=== PATIENT | female | born 1985 | race Caucasian/White ===

== ENCOUNTER 2020-05-05 02:08 | Outpatient (CLI) | payer OTHER, SELFPAY ==
[2020-05-05 10:02] LABS: HCT 42.1 % (36.0-46.0); Mean Corp. HGB Concentration 33.3 g/dL (32.0-36.0); Mean Corpuscular Volume 90.3 fL (80-95); Mean Platelet Volume 9.7 fL (8.0-11.0); Platelet Count 262 x1000/uL (130-400); RBC 4.66 m/cumm (4.00-5.20); RBC Distribution Width 12.4 % (11.7-14.6); White Blood Cell Count 7.59 k/cumm (4.4-10.8)
[2020-05-05 11:01] LABS: ALT 21 U/L (14-59); AST 17 U/L (15-37); Albumin 4.7 g/dL (3.4-5.0); Alkaline Phosphatase 49 U/L (46-116); Anion Gap 11.7 mmol/L (3-11); BUN 13 mg/dL (7-18); Bilirubin, Total 0.8 mg/dL (0.2-1.0); CO2 27.3 mmol/L (21.0-32.0); CREATININE 0.76 mg/dL (0.55-1.02); Calcium 9.1 mg/dL (8.5-10.1); Calculated LDL 125 mg/dL (<100); Chloride 103 mmol/L (98-107); Cholesterol 190 mg/dL (<200); Glucose 78 mg/dL (74-106); HDL Cholesterol 54 mg/dL (40-60); Potassium 3.9 mmol/L (3.5-5.1); Sodium 142 mmol/L (136-145); TSH (W/Ref FT4) 1.22 uIU/mL (0.36-3.74); Total Protein 7.6 g/dL (6.4-8.2); Triglyceride 58 mg/dL (<150)
[2020-05-05 11:23] LABS: Vitamin B12 533 pg/mL (193-986)
[2020-05-06 23:42] LABS: COVID-19 RT-PCR Result NEGATIVE (Negative)
== END 2020-05-05 02:28 ==
PROVIDERS: Nurse Practitioner Family; Psychiatry & Neurology Neurology; PCP Student in an Organized Health Care Education/Training Program; Visit Provider Student in an Organized Health Care Education/Training Program
DX: J45.990 Exercise induced bronchospasm (principal); Z13.1 Encounter for screening for diabetes mellitus; Z82.49 Family history of ischemic heart disease and other diseases of the circulatory system; Z83.3 Family history of diabetes mellitus; Z86.39 Personal history of other endocrine, nutritional and metabolic disease; R53.83 Other fatigue; Z13.220 Encounter for screening for lipoid disorders; R42 Dizziness and giddiness; G62.9 Polyneuropathy, unspecified; Z11.59 Encounter for screening for other viral diseases
CPT/HCPCS: 36415; 80053; 80061; 85027; U0003; 82607; 84443

== ENCOUNTER 2020-09-28 16:28 | Outpatient (REF) | payer OTHER, SELFPAY ==
--- NOTE | 2020-09-28 13:35 | PAPFT_PTH ---
PATIENT: Itzel Darby LOC: [facility] U#:[id number] AGE/SX: 35/F ROOM: RE09/28/[address]: Jordana Gonzalez DO : 1985 BED: DIS: 09/28/2020 SPEC #: [id number] RECD: 09/28/20 17:49 STATUS: THOMAS REQ #: [id number] JONATHAN: 09/28/20 13:[address]: Jordana Gonzalez DEPT: [facility] Cytology RECD BY: Rosa Morales ENTERED: 09/28/20 17:49 SP TYPE: PAPFT OTHR DR: Raissa Rodriguez DO Tissues: 1 - CX/ENDOCX FOR PAP SMEARS Procedures: PAP THIN PREP/UVM Screening HPV DNA PROBE Comments: [id number]
== END 2020-09-28 16:48 ==
LOC: LBN 16:28
PROVIDERS: PCP Student in an Organized Health Care Education/Training Program; Visit Provider Obstetrics & Gynecology
DX: Z12.4 Encounter for screening for malignant neoplasm of cervix (principal); R87.612 Low grade squamous intraepithelial lesion on cytologic smear of cervix (LGSIL); Z11.51 Encounter for screening for human papillomavirus (HPV); R87.810 Cervical high risk human papillomavirus (HPV) DNA test positive
CPT/HCPCS: 88142; 87624

== ENCOUNTER 2020-10-18 03:14 | Outpatient (CLI) | payer OTHER, SELFPAY ==
--- NOTE | 2020-10-18 06:30 | DI.US_ITS ---
EXAM: US PELVIS TRANSVAGINAL CLINICAL HISTORY: enlarged uterus, pain,iud surveillance,n85.2,z30.431 TECHNIQUE: Ultrasound of the pelvis was performed both transabdominal and transvaginal. COMPARISON: No exams were available for comparison FINDINGS: UTERUS: Measures 8.4 cm length x 4.3 cm AP x 5.1 cm wide. Uterus is retroverted. There are no uterine fibroids. Endometrial thickness measures 2-3 mm. There is no fluid in the endometrial canal. Echogenic IUD noted in the endometrial canal. CERVIX: There are no obvious nabothian cysts. RIGHT OVARY: Measures 3.7 x 1.6 x 1.5 cm There is a 2.2 x 1.6 x 1. 1 centimeter density which is probably hemorrhagic cyst. LEFT OVARY: Measures 0.3 x 1.4 x 1.7 cm No significant cysts nor masses evident in the left ovary. CUL-DE-SAC: No free fluid evident. IMPRESSION: 1. Nongravid retroverted uterus with IUD within the endometrial canal. Nonthickened endometrium. 2. 2.2 x 1.6 x 1.1 cm right ovarian finding which is probably hemorrhagic ovarian cyst. 3. No free fluid evident in the adnexal regions and cul-de-sac. DATA REPOSITORY:
== END 2020-10-18 03:34 ==
PROVIDERS: PCP Student in an Organized Health Care Education/Training Program; Visit Provider Obstetrics & Gynecology
DX: N85.4 Malposition of uterus (principal); Z97.5 Presence of (intrauterine) contraceptive device; N83.8 Other noninflammatory disorders of ovary, fallopian tube and broad ligament; Z30.431 Encounter for routine checking of intrauterine contraceptive device; N85.2 Hypertrophy of uterus
CPT/HCPCS: 76830; 76856

== ENCOUNTER 2020-10-23 16:28 | Outpatient (REF) | payer OTHER, SELFPAY ==
--- NOTE | 2020-10-23 15:20 | CER_PTH ---
PATIENT: Itzel Darby LOC: [facility] U#:[id number] AGE/SX: 35/F ROOM: RE10/23/[address]: Jordana Gonzalez DO : 1985 BED: DIS: 10/23/2020 SPEC #: [id number] RECD: 10/23/20 17:06 STATUS: THOMAS RE #: [id number] JONATHAN: 10/23/20 15:[address]: Jordana Gonzalez DEPT: Surgical Specimen RECD BY: Rosa Morales ENTERED: 10/23/20 17:07 SP TYPE: CER OTHR DR: Raissa Rodriguez DO Tissues: 1 - CERVICAL BIOPSY 2 - ENDOCERVICAL BX/CURRETTE Procedures: GROSS AND MICRO LEVEL 4 Comments: [id number]
== END 2020-10-23 16:48 ==
LOC: LBN 16:28
PROVIDERS: PCP Student in an Organized Health Care Education/Training Program; Visit Provider Obstetrics & Gynecology
DX: N72 Inflammatory disease of cervix uteri (principal); R87.612 Low grade squamous intraepithelial lesion on cytologic smear of cervix (LGSIL)
CPT/HCPCS: 88305

== ENCOUNTER 2022-04-01 13:11 | Outpatient (CLI) | payer OTHER, SELFPAY ==
[2022-04-01 12:49] LABS: HCG Quant, Pregnancy < 1 mIU/mL (1-3)
== END 2022-04-01 13:12 | disposition home or self-care (01) ==
LOC: LBO 13:13
PROVIDERS: PCP Student in an Organized Health Care Education/Training Program; Visit Provider Obstetrics & Gynecology
DX: Z3A.01 Less than 8 weeks gestation of pregnancy; O26.851 Spotting complicating pregnancy, first trimester
CPT/HCPCS: 36415; 84702

== ENCOUNTER 2022-08-26 15:35 | Outpatient (REF) | payer OTHER, SELFPAY ==
[2022-08-26 10:26] LABS: Source Nasal/Nares
[2022-08-26 10:58] LABS: COVID-19 PCR Negative (Negative)
== END 2022-08-26 15:36 | disposition home or self-care (01) ==
LOC: LBN 15:35
PROVIDERS: PCP Student in an Organized Health Care Education/Training Program; Visit Provider Nurse Practitioner Family
DX: Z20.822 Contact with and (suspected) exposure to COVID-19 (principal)
CPT/HCPCS: 87635

== ENCOUNTER 2022-09-11 09:45 | Outpatient (CLI) | payer OTHER, SELFPAY ==
--- NOTE | 2022-09-11 09:00 | DI.RAD_ITS ---
Exam(s) XR WRIST RT COMPL NAVICULAR EXAM: XR WRIST RT COMPL NAVICULAR CLINICAL HISTORY: persistent pain cammynes S63.511A SPRAIN RT WRIST SCAPHOLUNATE LIGAMENT. TECHNIQUE: 2D digital imaging was performed. COMPARISON: No exams were available for comparison FINDINGS: Four views: There is no evidence of fracture nor dislocation. Scaphoid and scapholunate distance appear unremark able. No significant ulnar variance. Bone density normal. No osseous lesions. IMPRESSION: No significant osseous findings. Given the history here if clinically indicated follow-up MRI can be performed for added sensitivity and specificity. DATA REPOSITORY: RADIATION DOSE DELIVERED:
== END 2022-09-11 10:05 ==
LOC: DI 09:46
PROVIDERS: PCP Student in an Organized Health Care Education/Training Program; Visit Provider Student in an Organized Health Care Education/Training Program
DX: M25.531 Pain in right wrist; S63.511D Sprain of carpal joint of right wrist, subsequent encounter
CPT/HCPCS: 73110

== ENCOUNTER 2022-10-22 16:31 | Outpatient (REF) | payer OTHER, SELFPAY ==
--- NOTE | 2022-10-22 15:00 | PAPFT_PTH ---
PATIENT: Itzel Darby LOC: [facility] U#:[id number] AGE/SX: 37/F ROOM: RE10/22/[address]: Jordana Gonzalez DO : 1985 BED: DIS: 10/22/2022 SPEC #: [id number] RECD: 10/22/22 17:25 STATUS: THOMAS REQ #: [id number] JONATHAN: 10/22/22 15:[address]: Jordana Gonzalez DEPT: [facility] Cytology RECD BY: Rosa Morales ENTERED: 10/22/22 17:25 SP TYPE: PAPFT OTHR DR: Raissa Rodriguez DO Tissues: 1 - CX/ENDOCX FOR PAP SMEARS Procedures: PAP THIN PREP/UVM Screening HPV DNA PROBE Comments: [id number] (CHLAMYDIA/GC)
[2022-10-23 14:30] LABS: Chlamydia Result Negative (Negative); GC Result Negative (Negative)
== END 2022-10-22 16:32 | disposition home or self-care (01) ==
LOC: LBN 16:31
PROVIDERS: PCP Student in an Organized Health Care Education/Training Program; Visit Provider Obstetrics & Gynecology
DX: Z12.4 Encounter for screening for malignant neoplasm of cervix (principal); Z11.3 Encounter for screening for infections with a predominantly sexual mode of transmission; R87.610 Atypical squamous cells of undetermined significance on cytologic smear of cervix (ASC-US); Z11.51 Encounter for screening for human papillomavirus (HPV)
CPT/HCPCS: 87491; 87591; 88142; 87624

== ENCOUNTER 2022-11-11 02:55 | Outpatient (CLI) | payer OTHER, SELFPAY ==
[2022-11-12 10:07] LABS: Hepatitis B Surface Ag Negative (Negative)
[2022-11-12 10:37] LABS: Hepatitis C Ab w Rflx HCV PCR Negative (Negative)
[2022-11-12 10:48] LABS: Varicella IgG Antibody Positive (See Note)
[2022-11-12 10:56] LABS: Rubella IgG Ab (UVM) Positive (See Note)
[2022-11-12 12:40] LABS: HIV-1/2 Ag & Ab Screen Reactive (Negative)
[2022-11-14 14:06] LABS: Syphilis IgG w/Reflex Nonreactive (Nonreactive)
[2022-11-20 12:42] LABS: HIV 1 Ab Diff Negative (Negative); HIV 2 Ab Diff Negative (Negative)
== END 2022-11-11 02:56 | disposition home or self-care (01) ==
LOC: LBO 02:55
PROVIDERS: PCP Student in an Organized Health Care Education/Training Program; Visit Provider Obstetrics & Gynecology
DX: Z31.69 Encounter for other general counseling and advice on procreation (principal)
CPT/HCPCS: 36415; 86701; 86702; 86787; 86803; 86850; 86900; 86901; 87340; 87389; 86762; 86780

== ENCOUNTER 2023-06-04 15:27 | Outpatient (RCR) | payer OTHER, SELFPAY ==
--- NOTE | 2023-06-04 15:20 | SKI_PTH ---
PATIENT: Itzel Darby LOC: [facility] U#:[id number] AGE/SX: 38/F ROOM: RE06/04/[address]: Padilla Davis MD : 1985 BED: DIS: 06/12/2023 SPEC #: [id number] RECD: 06/04/23 17:03 STATUS: THOMAS RE #: [id number] JONATHAN: 06/04/23 15:[address]: Padilla Davis DEPT: Surgical Specimen RECD BY: Rosa Morales ENTERED: 06/04/23 17:03 SP TYPE: ALONSO RENAE DR: Raissa Rodriguez DO Tissues: 1 - SKIN BIOPSY(SHAVE/PUNCH) Procedures: IMMUNOPEROXIDASE STAIN SKIN LEVEL 4 Comments: [id number]
== END 2023-06-12 23:59 | disposition home or self-care (01) ==
LOC: LBN 15:27
PROVIDERS: PCP Student in an Organized Health Care Education/Training Program; Visit Provider Surgery
DX: D03.9 Melanoma in situ, unspecified (principal)
CPT/HCPCS: 88305; 88361

== ENCOUNTER 2023-06-13 14:54 | Outpatient (REF) | payer OTHER, SELFPAY ==
--- NOTE | 2023-06-13 13:47 | SKI_PTH ---
PATIENT: Itzel Darby LOC: [facility] U#:[id number] AGE/SX: 38/F ROOM: RE06/13/[address]: Padilla Davis MD : 1985 BED: DIS: 06/13/2023 SPEC #: [id number] RECD: 06/13/23 17:39 STATUS: THOMAS RE #: [id number] JONATHAN: 06/13/23 13:[address]: Padilla Davis DEPT: Surgical Specimen RECD BY: Rosa Morales ENTERED: 06/13/23 17:39 SP TYPE: ALONSO RENAE DR: Raissa Rodriguez DO Tissues: 1 - SKIN BIOPSY(SHAVE/PUNCH) 2 - SKIN BIOPSY(SHAVE/PUNCH) Procedures: IMMUNOPEROXIDASE STAIN SKIN LEVEL 4 Comments: [id number]
== END 2023-06-13 14:55 | disposition home or self-care (01) ==
LOC: LBN 14:54
PROVIDERS: PCP Student in an Organized Health Care Education/Training Program; Visit Provider Surgery
DX: L82.1 Other seborrheic keratosis (principal); L90.5 Scar conditions and fibrosis of skin; D03.71 Melanoma in situ of right lower limb, including hip
CPT/HCPCS: 88305; 88361

== ENCOUNTER → 2023-07-24 00:53 | Outpatient (CLI) | payer OTHER, SELFPAY ==
--- NOTE | 2023-07-24 15:45 | DI.MAMMO_ITS ---
Exam(s) US BREAST RT LIMITED MG MAMMO SCREENING 60 MIN DUR EXAM: MG MAMMO SCREENING 60 MIN DUR and U/S breast RT limited CLINICAL HISTORY: breast cancer screening and breast implant status, Z12.31, Z98.82. TECHNIQUE: Craniocaudal and mediolateral oblique Full Field Digital Mammography views with Computer Aided Diagnosis followed by Tomosynthesis and right breast ultrasound. COMPARISON: This is a baseline examination. FINDINGS: Mammography/Tomosynthesis: The patient has bilateral breast implants. Masses/Architectural Distortion: None seen. Microcalcifictions: No suspicious pleomorphic-type are seen. Skin Thickening/Nipple Retraction: None. Limited right breast US: Echotexture: Normal appearance of the glandular tissue. Breast implant: There is focal thickening seen of the fibrous capsule of the right implant at the 10 o'clock position. This corresponds to the palpable abnormality. Shadowing: No suspicious foci. Cyst: None. Solid lesions: None seen. Ductal dilation: None. IMPRESSION: 1. No evidence of malignancy is noted. 2. Unless there is more urgent need, follow-up screening mammography is recommended, as per [place] [employer] guidelines. 3. The findings were discussed with the patient on the date of the examination. BI-RADS Category 1 - Negative Breast Density - Category B - Scattered areas of fibroglandular density Breast density Category C or D implies that the patient has dense breast tissue. Dense breast tissue can make it harder to find cancer on a mammogram. Dense breast tissue is also associated with an incr eased risk of breast cancer. This information about the result of the mammogram report was provided to the patient to raise their awareness. Use this report when you speak with the patient about their risks for breast cancer, which includes their family history. At that time, you may recommend additional screening tests (Ultrasoun d or MRI) as these tests may add significant information. A negative radiographic report should not delay biopsy if a dominant or clinically suspicious mass is present. Up to ten percent of cancers are not identified on mammography. A negative report may reinforce clinical impression. Adenosis and dense breasts may obscure an underlying neoplasm. False positive reports average 6 to 10%. Patient will receive a letter notifying them of these results.
== END ==
PROVIDERS: PCP Student in an Organized Health Care Education/Training Program; Visit Provider Surgery
DX: Z12.31 Encounter for screening mammogram for malignant neoplasm of breast (principal); Z98.82 Breast implant status; N63.11 Unspecified lump in the right breast, upper outer quadrant
CPT/HCPCS: 76642; 77063; 77067

== ENCOUNTER 2023-11-06 11:45 | Outpatient (REF) | payer OTHER, SELFPAY ==
--- NOTE | 2023-11-06 11:30 | PAPFT_PTH ---
PATIENT: Itzel Darby LOC: [facility] U#:[id number] AGE/SX: 38/F ROOM: RE11/06/[address]: Jordana Gonzalez DO : 1985 BED: DIS: 11/06/2023 SPEC #: [id number] RECD: 11/06/23 17:41 STATUS: THOMAS REQ #: [id number] JONATHAN: 11/06/23 11:[address]: Jordana Gonzalez DEPT: [facility] Cytology RECD BY: Rosa Morales ENTERED: 11/06/23 17:41 SP TYPE: PAPFT OTHR DR: Raissa Rodriguez DO Tissues: 1 - CX/ENDOCX FOR PAP SMEARS Procedures: PAP THIN PREP/UVM Screening HPV DNA PROBE Comments: [id number]
== END 2023-11-06 11:46 | disposition home or self-care (01) ==
LOC: LBN 11:45
PROVIDERS: PCP Student in an Organized Health Care Education/Training Program; Visit Provider Obstetrics & Gynecology
DX: Z12.4 Encounter for screening for malignant neoplasm of cervix (principal)
CPT/HCPCS: 88142; 87624

== ENCOUNTER 2024-03-04 13:41 | Outpatient (CLI) | payer OTHER, SELFPAY ==
[2024-03-04 15:54] LABS: Abs Immature Grans 0.01 10^3/uL (0.0-0.06); Absolute Basophil Count 0.04 10^3/uL (0.0-0.2); Absolute Eosinophil Count 0.05 10^3/uL (0.0-0.7); Absolute Lymphocyte Count 1.47 10^3/uL (1.2-3.4); Absolute Monocyte Count 0.35 10^3/uL (0.1-0.8); Absolute Neutrophil Count 4.07 10^3/uL (1.2-6.7); Basophils % 0.7 %; Eosinophils % 0.8 %; HCT 41.1 % (36.0-46.0); HGB 14.1 g/dL (11.2-15.7); Immature Grans % 0.2 %; Lymphocytes % 24.5 %; MCH 30.9 pg (27.0-33.0); MCHC 34.3 % (32.0-36.0); MCV 90 fL (80-95); MPV 9.8 fL (8.0-11.0); Monocytes % 5.8 %; Platelet Count 248 10^3/uL (130-400); RBC 4.56 10^6/uL (3.93-5.22); RDW 12.1 % (11.7-14.6); RDW-SD 39.9 fL; WBC 5.99 10^3/uL (4.4-10.8)
[2024-03-04 16:05] LABS: Hemoglobin A1C 5.2 % (<5.7)
[2024-03-04 17:00] LABS: Folate 17.7 ng/mL (8.6-20.0)
[2024-03-04 17:08] LABS: Vitamin D 25 Total 24.7 ng/mL (30-100)
[2024-03-04 17:10] LABS: ALT 21 U/L (14-59); AST 13 U/L (15-37); Albumin 4.3 g/dL (3.4-5.0); Alkaline Phosphatase 54 U/L (46-116); Anion Gap 5.3 mmol/L (3-11); BUN 15 mg/dL (7-18); Bilirubin, Total 0.6 mg/dL (0.2-1.0); CO2 28.7 mmol/L (21.0-32.0); CREATININE 0.9 mg/dL (0.55-1.02); Calcium 9.2 mg/dL (8.5-10.1); Chloride 105 mmol/L (98-107); Glucose 88 mg/dL (74-106); Magnesium 1.9 mg/dL (1.8-2.4); Potassium 3.5 mmol/L (3.5-5.1); Sodium 139 mmol/L (136-145); Total Protein 7.4 g/dL (6.4-8.2); Vitamin B12 739 pg/mL (193-986)
[2024-03-04 17:23] LABS: C-Reactive Protein < 0.50 mg/dL (<or=0.5)
[2024-03-05 19:59] LABS: Apolipoprotein A1 151 mg/dL (>=140)
[2024-03-09 17:44] LABS: Apolipoprotein B, Serum 87 mg/dL (48-124); Beta VLDL Cholesterol Not Detected mg/dL (<15); Beta VLDL Triglycerides Not Detected mg/dL (<15); Cholesterol, Total, CDC 192 mg/dL; Chylomicron Cholesterol Not Detected; Chylomicron Triglycerides Not Detected; HDL Cholesterol, CDC 51 mg/dL (>=50); Interpretation Normal; LDL Cholesterol 112 mg/dL; LDL Triglycerides 27 mg/dL (<=50); Lp(a) Cholesterol <5 mg/dL (<5); LpX Not detected; Triglycerides, CDC 80 mg/dL; VLDL Cholesterol 29 mg/dL (<30); VLDL Triglycerides 37 mg/dL (<120)
== END 2024-03-04 13:42 | disposition home or self-care (01) ==
LOC: LBO 13:42
PROVIDERS: PCP Student in an Organized Health Care Education/Training Program; Visit Provider Student in an Organized Health Care Education/Training Program
DX: Z91.89 Other specified personal risk factors, not elsewhere classified (principal); I10 Essential (primary) hypertension; E78.00 Pure hypercholesterolemia, unspecified; Z82.49 Family history of ischemic heart disease and other diseases of the circulatory system; Z86.2 Personal history of diseases of the blood and blood-forming organs and certain disorders involving the immune mechanism; R51.9 Headache, unspecified; R53.83 Other fatigue; R73.09 Other abnormal glucose
CPT/HCPCS: 36415; 80053; 80061; 82306; 82172; 82607; 82664; 82746; 83036; 83735; 85025; 86140

== ENCOUNTER 2024-08-31 06:15 | Day surgery (SDC) | payer OTHER, SELFPAY ==
--- NOTE | 2024-08-30 09:30 | SCONE_ITS ---
Date of service: 08/30/24 Time of Service: 09:30 Assessment and Plan Assessment and plan (1) Dysphagia: Status: Acute Assessment and plan: 39-year-old woman who has intermittent, paroxysmal dysphagia to solids only for years as well as on/off GERD. The differential diagnosis certainly includes motility disorders as well as the possibility of eosinophilic esophagitis. Benign esophageal webs are also within the differential diagnosis. Endoscopy is indicated. We discussed that the most significant risk is the distinct possibility of non- diagnostic results. Namely, that we do not find any answers for her dysphagia despite investigating. She understands this clearly and wishes to proceed. Separately, due for her for screening colonoscopy considering the family history. Overall plan: EGD with biopsies throughout the esophagus + screening colonoscopy History of Present Illness Narrative: The patient is a healthy 39-year-old woman who has a family history of adenomatous colorectal polyps in her sister. She is not having any bowel habit issues or changes. She is due for her for screening because of the family history. Separately, she has a long?standing history of dysphagia to solids. This is somewhat intermittent and has been going on for decades. It is unclear what exacerbates it or makes it happen and it seems to be sporadic and paroxysmal. She does have occasional acid reflux on and off. She does not take antacid medications for this. She does not know what spontaneously creates heartburn/GERD she does not have it every day but has had episodes of GERD on and off for years now. Medical history significant for hypertension and melanoma. Surgical history: PFSH All Active Problems (Updated 08/30/24 @ 12:37 by Dong Huitron MD) Dysphagia (Acute) GERD (gastroesophageal reflux disease) (Chronic) Presence of saline breast implant (Acute) Screening for breast cancer (Acute) Hair loss (Acute) Mild --> now noticeable .. [ ] Minox top vs Finesteride vs Spirono? Nevus sebaceous (Acute) Multiple melanocytic nevi (Acute) Onychomycosis (Acute) Rosacea (Acute) Low serum HDL (Acute) Elevated LDL cholesterol level (Acute) HTN, goal below 130/80 (Acute) Situational hypertension (Acute) Encounter for IUD insertion (Acute) Altitude sickness preventative measures (Acute) Prevention, moderate- to high-risk situations: Note: Use in addition to gradual ascent; start the day before (preferred) or on the day of ascent (Ref). Oral (immediate release): 125 mg twice daily; may be discontinued after staying at the same elevation for 2 to 4 days or if descent is initiated (Ref). Treatment: Acute mountain sickness: Oral (immediate release): 250 mg twice daily (Ref). Continue until descent or 24 hours after resolution of symptoms. Note: Some experts suggest 125 mg twice daily may be sufficient (Ref). General counseling and advice for contraceptive management (Acute) Breast cancer screening by mammogram (Acute) Melanoma in situ (Acute) Acne vulgaris (Acute 07/28/17) Exercise-induced asthma (Acute) Tonsillar calculus (Acute) Environmental allergies (Acute) Loratidine, 3/4 year. Nasonex. Fatigue (Acute) Daily exercise; Hx anemia during . [ ] TSH Ocular migraine (Acute) Migraine headache without aura (Acute) Right hand pain (Acute) Sprain of right scapholunate ligament (Acute) Low grade squamous intraepithelial lesion (LGSIL) on cervical Pap smear (Acute) Nail dystrophy (Acute) Pain, foot (Acute) False-positive serological test result (Chronic) HIV, PCR consistently negative Post covid-19 condition, unspecified (Acute) Medical History Skin lesion of foot Depression Wedge compression fracture of first lumbar vertebra, initial encounter for closed fracture (04/20/18) Encounter for screening for other viral diseases Hx INDETERMINATE HIV, PCR (-). d/w albin vickers numerous times. Surgical History H/O breast augmentation (~2007) section (12/07/11) Family History Mother Multiple myeloma Depression Hypothyroid Father Diabetes Heart disease Hypertension Stroke Brother Hypertension Hyperlipidemia Social History Smoking/Tobacco Use Status: Never Smoking risk assessment performed?: Yes Alcohol Intake: current Alcohol Intake frequency: a few times a week Alcohol type: hard liquor Drug use: Never Substance use type: does not use Adopted: No Caregiver/Support person: No Foster care: No Household members: significant other and children Housing: house Number of Children: 2 Communication Needs: Corrective Lenses Do you need help understanding health information?: Never 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 Neuro: Alert and oriented x3 Psych: Good mood and affect. Good insight and understanding into condition. Chest: Non-labored breathing, no wheezing, no visible shortness of breath. Heart: Regular
--- NOTE | 2024-08-30 17:49 | W.ANESPRE ---
General Info Date of Service Date Performed: 08/31/24 Height: 5 ft 4.5 in Weight: 56.019 kg Body Mass Index (BMI): 20.8 Surgical Procedure: Operation Date: 08/31/24 07:35 Proposed Procedure Side Surgeon p Colonoscopy/Gastroscopy Dong Huitron MD Meds Allergies and Home Medications Allergies Allergy/AdvReac Type Severity Reaction Status Date / Time No Known Allergies Allergy Verified 08/31/24 06:56 environmental Allergy Severe rhinitis Uncoded 08/31/24 06:56 Home Medication ?Medication ?Instructions ?Recorded mometasone 50 mcg/actuation nasal 2 spray intranasal DAILY 02/07/21 spray (Nasonex) magnesium 200 mg tablet 400 mg PO DAILY 12/18/23 blood-glucose meter,continuous #1 ea 01/05/24 (Dexcom G7 Carbonizer Tester) blood-glucose sensor (Dexcom G7 #1 ea 01/05/24 Sensor device) azelaic acid 15 % topical gel 1 applic topical BID 01/07/24 tretinoin 0.05 % topical cream 1 applic topical QHS 01/07/24 albuterol sulfate 90 mcg/actuation 2 puff inhalation QID PRN 06/18/24 aerosol inhaler shortness of breath or wheezing #1 unit losartan 25 mg tablet 25 mg PO BID #180 tabs 06/18/24 Current Visit Medications: Current Medications Generic Name Dose Route Start Last Admin Trade Name Freq PRN Reason Stop Dose Admin Ringer's Solution 1,000 mls @ 80 mls/hr 08/31/24 06:00 IV 08/31/24 23:59 INFUSION RAYRAY IV Miscellaneous Supplies 1 each 08/31/24 06:00 Iv Access IV 08/31/24 23:59 DIRECTED RAYRAY Sodium Chloride 0 ml 08/31/24 06:00 Normal Saline Flush 10 Ml Syr IV 08/31/24 23:59 PRN PRN Sodium Chloride 0 ml 08/31/24 06:00 Normal Saline 10 Ml Vial IJ 08/31/24 23:59 DIRECTED PRN Sterile Water 0 ml 08/31/24 06:00 Water,Injection,Sterile 10 Ml Vial IJ 08/31/24 23:59 DIRECTED PRN PFSH Active Problems Active Problems: Problem Status Onset Code Dysphagia Acute R13.10 GERD (gastroesophageal reflux disease) Chronic K21.9 Presence of saline breast implant Acute Z98.82 Screening for breast cancer Acute Z12.39 Hair loss Acute L65.9 Nevus sebaceous Acute D22.9 Multiple melanocytic nevi Acute D22.9 Onychomycosis Acute B35.1 Rosacea Acute L71.9 Low serum HDL Acute R74.8 Elevated LDL cholesterol level Acute E78.00 HTN, goal below 130/80 Acute I10 Situational hypertension Acute R03.0 Encounter for IUD insertion Acute Z30.430 Altitude sickness preventative measures Acute Z29.89 General counseling and advice for contraceptive management Acute Z30.09 Breast cancer screening by mammogram Acute Z12.31 Melanoma in situ Acute D03.9 Acne vulgaris Acute 07/28/17 L70.0 Exercise-induced asthma Acute J45.990 Tonsillar calculus Acute J35.8 Environmental allergies Acute Z91.09 Fatigue Acute R53.83 Ocular migraine Acute G43.109 Migraine headache without aura Acute G43.009 Right hand pain Acute M79.641 Sprain of right scapholunate ligament Acute S63.511A Low grade squamous intraepithelial lesion (LGSIL) on cervical Pap smear Acute R87.612 Nail dystrophy Acute L60.3 Pain, foot Acute M79.673 False-positive serological test result Chronic R76.8 Post covid-19 condition, unspecified Acute U09.9 Medical History Medical History Skin lesion of foot Depression Wedge compression fracture of first lumbar vertebra, initial encounter for closed fracture (04/20/18) Encounter for screening for other viral diseases Hx INDETERMINATE HIV, PCR (-). d/w albin vickers numerous times. Surgical History Surgical History H/O breast augmentation (~2007) section (12/07/11) Tobacco Smoking/Tobacco Use Status: Never Alcohol Alcohol Intake: current Alcohol intake frequency: a few times a week Alcohol type: hard liquor Substance Use Substance use: Never Substance use type: does not use Vital Signs and Lab Results Vital Signs Most Recent Vital Signs in EMR: Temp Pulse Resp BP Pulse Ox 36.4 C L 83 16 120/96 H 100 08/31/24 06:34 08/31/24 06:34 08/31/24 06:34 08/31/24 06:34 08/31/24 06:34 Lab Results Blood Type / Crossmatch: No Data to Display Complete Blood Count: No Data to Display Complete Metabolic Panel: No Data to Display Liver Function Panel: No Data to Display Coagulation Panel: No Data to Display Cardiac Panel: No Data to Display Arterial Blood Gas: No Data to Display Venous Blood Gas: No Data to Display Pancreas Panel: No Data to Display Thyroid Panel: No Data to Display Infectious Disease: No Data to Display Blood Cultures: No Data to Display Toxicology Panel: No Data to Display Panel: No Data to Display Anesthesia Assessment and Plan Anesthesia History Personal History: No History of General Anesthesia Family History: No Family History of Anesthesia Complications Exercise Tolerance Exercise Tolerance: Metabolic Equivalents>4 Cardiac & Pulmonary Exam Cardiac Exam: Normal S1/S2 Heart Sounds Pulmonary Exam: Clear Bilateral Breath Sounds Implantable Cardiac Device Does patient have a Pacemaker or an ICD?: No Airway Exam Known Difficult Airway: No Mallampati Class: 2 Mouth Opening: Normal (> 3cm) Thyromental Distance: Greater than 3 cm Neck Range of Motion: Full ROM Neck Circumference: Normal Teeth Condition: Normal Dentition ASA Classification ASA Score: ASA 2 Emergency Case?: No NPO Status NPO Status: NPO Clears >2 hours, Solids >8 hours Status Status: Negative HCG Anesthesia Plan Resuscitation Status: Full Code Anesthesia Technique: General Anesthesia Airway Planned: Natural Airway Monitors Used: Standard Monitors Preoperative Comments:: 39 yo female for EGD/colo. Sig PMHx : HTN (losartan), RAD (albuterol), GERD, migraine, lumbar fracture. never smoker, occ EtOH.
[2024-08-31 06:34] VITALS: BP 120/96; PULSE 83; RESP 16; TEMP 36.4; O2SAT 100
[2024-08-31] MEDS: Normal Saline Flush 10 ML SYR IV (06:40)
[2024-08-31 06:54] VITALS: BMI 20.8
--- NOTE | 2024-08-31 07:45 | STOM_PTH ---
PATIENT: Itzel Darby LOC: [facility] U#:[id number] AGE/SX: 39/F ROOM: RE08/31/[address]: Dong Huitron : 1985 BED: DIS: 08/31/2024 SPEC #: [id number] RECD: 08/31/24 12:25 STATUS: THOMAS RE #: [id number] JONATHAN: 08/31/24 07:[address]: Dong Huitron DEPT: Surgical Specimen RECD BY: Rosa Morales ENTERED: 08/31/24 12:33 SP TYPE: STOMACH OTHR DR: Raissa Rodriguez DO Tissues: 1 - STOMACH BIOPSY 2 - STOMACH BIOPSY 3 - ESOPHAGUS BIOPSY 4 - ESOPHAGUS BIOPSY 5 - ESOPHAGUS BIOPSY 6 - BIOPSY BOWEL Procedures: GROSS AND MICRO LEVEL 4 Comments: [id number]
[2024-08-31 08:20] VITALS: BP 109/77; PULSE 87; RESP 16; TEMP 36.3; O2SAT 97
--- NOTE | 2024-08-31 08:32 | W.ANESPOSTOP ---
Postoperative Evaluation Date, Time and Location Date Performed: 08/31/24 Time Performed: 08:32 Patient Location: Day Surgery Unit Vital Signs Most Recent Imported Vital Signs: Most Recent Vital Signs Temp Pulse Resp BP Pulse Ox 36.4 C L 83 16 120/96 H 100 08/31/24 06:34 08/31/24 06:34 08/31/24 06:34 08/31/24 06:34 08/31/24 06:34 Pain Score Most Recent Pain Score: Most Recent Pain Score Pain Level 0 08/31/24 06:34 Assessment Mental Status: Awake (Alert & Oriented to Patient Baseline) Airway and Respiratory Function: Patent airway with normal (patient baseline) respiratory exam Cardiovascular Function: Hemodynamically Stable Hydration Status: Adequately Hydrated Nausea & Vomiting: No Nausea or Vomiting Pain: Pt. Denies Any Pain Peripheral Nerve Block: Patient did not receive a nerve block
--- NOTE | 2024-08-31 08:55 | ENDO_ITS ---
Date of service: 08/31/24 Time of Service: 16:46 Endoscopy Report PROCEDURE DESCRIPTION: PROCEDURES PERFORMED: 1. EGD with biopsies PREOPERATIVE DIAGNOSIS: Dysphagia POSTOPERATIVE DIAGNOSIS: Normal foregut SURGEON: Ray Huitron MD INDICATION FOR PROCEDURE: Healthy 39-year-old woman has been experiencing on and off dysphagia for decades. Only to solids. Never to liquids. Not all the time. Occasionally has acid reflux as well but not daily or regularly. Does not take antacid medication. FINDINGS: D2/D3 = normal D1/bulb = normal - no ulcers or inflammation Pylorus = normal Antrum = normal appearance, no ulcers, cold forceps biopsies were taken to rule out H. pylori routinely Body = normal appearance, biopsies taken with cold forceps technique routinely Fundus = normal, no polyps Cardia = normal Hiatus = no hiatal hernia - but Hill grade 2 defect occasionally. Distal esophagus = no inflammation, no esophagitis, no Morris's, no stricture, no webs. Biopsies were taken routinely here to rule out eosinophilic esophagitis. Mid esophagus = normal, biopsies taken to rule out eosinophilic esophagitis. Proximal esophagus/hypopharynx/vocal cords = normal, biopsies taken at cervical esophagus to rule out eosinophilic esophagitis. SURVEILLANCE-INTERVAL/FOLLOW-UP: Pending pathology proving no eosinophilic esophagitis. If normal path results, then no follow-up is necessary but manometry could be considered for next steps. There could be a role for an endoscopic TIF procedure. Specimens: Yes EBL: Minimal COMPLICATIONS: None Procedure in detail: The patient gave written consent and was in agreement with the indications, the potential risks as well as the benefits of the procedure. The patient was taken to the endoscopy suite and laid on their left side. Anesthesia was given which was tolerated well. We performed a timeout and we ar e in agreement I started the procedure. A well-lubricated endoscope was gently and carefully advanced down the esophagus, into the stomach the scope was and through the pylorus into the duodenum. The scope was then slowly withdrawn with the above-noted findings/interventions. The patient tolerated the procedure well and was then turned for colonoscopy (see separate procedure note).
--- NOTE | 2024-08-31 08:55 | PDOC.DSDIS_ITS ---
Date of service: 08/31/24 Time of Service: 08:55 Discharge Plan Disposition Patient Disposition: Home Condition: Good Discharge Details Attending Provider: Dong Huitron Primary Care Provider: Raissa Rodriguez Home Meds and New Rx's Prescriptions: No Action magnesium 200 mg tablet 400 mg PO DAILY albuterol sulfate 90 mcg/actuation HFA aerosol inhaler 2 puff IH QID PRN (Reason: shortness of breath or wheezing) Qty: 1 2RF Rx Instructions: Dispense brand best covered under insurance losartan 25 mg tablet 25 mg PO BID Qty: 180 3RF Rx Instructions: Continue (1) tab; may increase to 50mg daily vs 25mg BID based on BP mometasone [Nasonex] 50 mcg/actuation spray,non-aerosol 2 spray intranasal DAILY Rx Instructions: administer into each nostril (DME) Dexcom G7 Sensor Device See Rx Instructions .Route Qty: 1 0RF Rx Instructions: As directed (DME) Dexcom G7 Administrative Services Manager Misc See Rx Instructions .Route Qty: 1 0RF Rx Instructions: As directed azelaic acid 15 % gel 1 applic topical BID tretinoin 0.05 % cream 1 applic topical QHS Rx Instructions: Start 2-3 times per week and slowly increase to nightly use. Can also mix with a bland moisturizer to help with irritation. Discharge Instructions Activity:: Activity as Tolerated Diet:: As Tolerated DS: Diagnosis Discharge Diagnosis (1) Dysphagia: Status: Acute Asessment and Plan: No significant findings or concerns on endoscopy or colonoscopy. Biopsies were taken routinely to rule out such entities such as eosinophilic esophagitis which could explain the dysphagia. If those biopsies are normal, then your dysphagia symptoms are probably related to a mild motility disorder which would be diagnosed with manometry if you wanted to pursue more answers.
--- NOTE | 2024-08-31 08:55 | W.COLOREPORT ---
Date of service: 08/31/24 Time of Service: 16:52 Colonoscopy Report Procedure Description: Procedures performed: 1. Colonoscopy with cold forceps biopsies Preoperative diagnosis: Screening colonoscopy Postoperative diagnosis: Normal terminal ileum, normal colon, normal rectum Surgeon: Ray Huitron MD Indication for procedure: The patient is a 39-year-old woman who is healthy and has no symptoms of concern. Her sister has had adenomatous colon polyps removed. Findings: Normal terminal ileum. Routine biopsies taken of the TI though it appeared completely normal. The colon was completely normal. No diverticulosis. No polyps. No inflammatory processes. No unusual redundancy or tight turns. The rectum was normal. No inflammation. No obvious hemorrhoid disease. Surveillance interval/follow-up: 5-10 years. Some guidelines recommend a 5-year surveillance interval for patients with first-degree relatives who have adenomatous colon polyps. Others have recommended 10-year surveillance intervals after earlier screening. In this case the relative is the patient's half?sister. A half-sibling is technically not a first-degree relative and so it is probably safe to do a 10-year interval now that the screening is clear. Specimens: yes Estimated blood loss: Minimal Complications: None Quality of prep: Excellent Procedure in detail: The patient gave written consent and was in agreement with the indications, the potential risks as well as the benefits of the procedure. She was turned from upper endoscopy (see separate procedure note) and I kept her in the same position and started the colonoscopy portion of the procedure. Digital rectal and visual examination was performed and grossly within normal limits. A well-lubricated flexible colonoscope was then introduced and passed without any notable difficulty all the way to the cecum identified by the ileocecal valve and the appendiceal orifice. The terminal ileum was deeply intubated and looked normal visually. The scope was then slowly withdrawn with the above-noted findings. The patient tolerated the procedure well and was taken to the PACU in hemodynamically stable condition.
[2024-08-31 08:57] VITALS: BP 117/90; PULSE 79; RESP 16; TEMP 36.5; O2SAT 100
== END 2024-08-31 09:18 | disposition home or self-care (01) ==
PROVIDERS: PCP Student in an Organized Health Care Education/Training Program; Visit Provider Student in an Organized Health Care Education/Training Program
PROC: (CPT 45380; principal; 2024-08-31 07:30)
DX: R13.10 Dysphagia, unspecified (principal); Z12.11 Encounter for screening for malignant neoplasm of colon; I10 Essential (primary) hypertension; K20.80 Other esophagitis without bleeding
CPT/HCPCS: 45380; 43239; 00123; 81025; 88305; J2405; J2704

== ENCOUNTER 2024-09-23 02:51 | Outpatient (CLI) | payer OTHER, SELFPAY ==
--- NOTE | 2024-09-23 15:00 | DI.MAMMO_ITS ---
Exam(s) MG MAMMO SCREENING 60 MIN DUR EXAM: MG MAMMO SCREENING 60 MIN DUR CLINICAL HISTORY: breast cancer screening z98.82 implants. TECHNIQUE: Bilateral full field digital CC and MLO mammographic images were obtained with 3D tomosyn thesis and utilizing computer aided detection (CAD). COMPARISON: Prior baseline mammogram July 2023 was reviewed. Prior right breast ultrasound 07/24/2023 was also reviewed. FINDINGS: Again noted are bilateral retropectoral saline breast implants There are no CAD designations. There are no new spiculated masses nor malignant appearing microcalcification groups. There is no significant architectural distortion nor skin thickening-retraction. IMPRESSION: No radiographic evidence of malignancy. BI-RADS Category 1 - Negative Breast Density - Category B - Scattered areas of fibroglandular density Breast density Category C or D implies that the patient has dense breast tissue. Dense breast tissue can make it harder to find cancer on a mammogram. Dense breast tissue is also associated with an incr eased risk of breast cancer. This information about the result of the mammogram report was provided to the patient to raise their awareness. Use this report when you speak with the patient about their risks for breast cancer, which includes their family history. At that time, you may recommend additional screening tests (Ultrasoun d or MRI) as these tests may add significant information. A negative radiographic report should not delay biopsy if a dominant or clinically suspicious mass is present. Up to ten percent of cancers are not identified on mammography. A negative report may reinforce clinical impression. Adenosis and dense breasts may obscure an underlying neoplasm. False positive reports average 6 to 10%. Patient will receive a letter notifying them of these results.
== END 2024-09-23 03:11 ==
LOC: DI 02:51
PROVIDERS: PCP Student in an Organized Health Care Education/Training Program; Visit Provider Obstetrics & Gynecology
DX: Z98.82 Breast implant status (principal); Z12.31 Encounter for screening mammogram for malignant neoplasm of breast; R92.323 Mammographic fibroglandular density, bilateral breasts
CPT/HCPCS: 77063; 77067

== ENCOUNTER 2024-09-23 08:55 | Outpatient (CLI) | payer OTHER, SELFPAY ==
[2024-09-23 10:16] LABS: Calculated LDL 127 mg/dL (<100); Cholesterol 211 mg/dL (<200); HDL Cholesterol 64 mg/dL (40-60); TSH (W/Ref FT4) 2.16 uIU/mL (0.36-3.74); Triglyceride 104 mg/dL (<150); Vitamin D 25 Total 31.7 ng/mL (30-100)
[2024-09-27 18:02] LABS: Apolipoprotein B, Serum 97 mg/dL (48-124); Beta VLDL Cholesterol Not Detected mg/dL (<15); Beta VLDL Triglycerides Not Detected mg/dL (<15); Cholesterol, Total, CDC 204 mg/dL; Chylomicron Cholesterol Not Detected; Chylomicron Triglycerides Not Detected; HDL Cholesterol, CDC 50 mg/dL (>=50); LDL Cholesterol 134 mg/dL; LDL Triglycerides 27 mg/dL (<=50); Lp(a) Cholesterol <5 mg/dL (<5); LpX Not detected; Triglycerides, CDC 94 mg/dL; VLDL Cholesterol 20 mg/dL (<30); VLDL Triglycerides 47 mg/dL (<120)
[2024-09-28 17:14] LABS: HDL Particles 38 mcmol/L; LDL Cholesterol (NMR) 134 mg/dL; LDL Particles 1595 nmol/L
== END 2024-09-23 08:56 | disposition home or self-care (01) ==
LOC: LBO 08:55
PROVIDERS: PCP Student in an Organized Health Care Education/Training Program; Visit Provider Student in an Organized Health Care Education/Training Program
DX: E78.6 Lipoprotein deficiency (principal); R74.8 Abnormal levels of other serum enzymes; R53.83 Other fatigue; L65.9 Nonscarring hair loss, unspecified; I10 Essential (primary) hypertension; Z13.220 Encounter for screening for lipoid disorders; K90.9 Intestinal malabsorption, unspecified
CPT/HCPCS: 36415; 80061; 82306; 83704; 82172; 82664; 84443

== ENCOUNTER 2024-10-08 12:07 | Outpatient (CLI) | payer OTHER, SELFPAY ==
--- NOTE | 2024-10-08 10:15 | DI.MRI_ITS ---
Exam(s) MR UPPER EXTREMITY LT WO EXAM: MR UPPER EXTREMITY LT WO CLINICAL HISTORY: eval L dorsal hand mass, boss v. cyst v. tendon R22.32. TECHNIQUE: Multiplanar multisequence MRI was performed. COMPARISON: None. FINDINGS: Bones: No evidence of fracture or contusion. No focal bone lesion. Joints: Joint space narrowing and spurring at the dorsal aspect of the 3rd carpal metacarpal joint. No additional areas of significant degenerative change. The overlying tendon appears intact. No flu id collection, synovial cyst or ganglia. The soft tissues: Unremarkable. IMPRESSION: Degenerative changes with spurring at the posterior aspect of the 3rd carpal metacarpal joint. DATA REPOSITORY:
== END 2024-10-08 12:27 ==
LOC: DI 12:08
PROVIDERS: PCP Student in an Organized Health Care Education/Training Program; Visit Provider Student in an Organized Health Care Education/Training Program
DX: R22.32 Localized swelling, mass and lump, left upper limb (principal)
CPT/HCPCS: 73218

== ENCOUNTER 2025-07-24 09:32 | Emergency (ER) | payer OTHER, SELFPAY ==
--- NOTE | 2025-07-24 09:37 | W.ED.GENAD ---
Discharge Plan Disposition Patient Disposition: Home Discharge Details Clinical Impression: Tick bite of right upper arm Primary Care Provider: Carlie Silverman ED Provider: Alon Leong Home Meds and New Rx's Prescriptions: New doxycycline hyclate 100 mg capsule 100 mg PO BID 10 Days Qty: 20 0RF Continued magnesium 200 mg tablet 400 mg PO DAILY albuterol sulfate 90 mcg/actuation HFA aerosol inhaler 2 puff IH QID PRN (Reason: shortness of breath or wheezing) Qty: 1 2RF Rx Instructions: Dispense brand best covered under insurance losartan 25 mg tablet 25 mg PO BID Qty: 180 3RF Rx Instructions: Continue (1) tab; may increase to 50mg daily vs 25mg BID based on BP mometasone [Nasonex] 50 mcg/actuation spray,non-aerosol 2 spray intranasal DAILY Rx Instructions: administer into each nostril (DME) Dexcom G7 Sensor Device See Rx Instructions .Route Qty: 1 0RF Rx Instructions: As directed (DME) Dexcom G7 Agriculture Extension Specialist Misc See Rx Instructions .Route Qty: 1 0RF Rx Instructions: As directed azelaic acid 15 % gel 1 applic topical BID tretinoin 0.05 % cream 1 applic topical QHS Rx Instructions: Start 2-3 times per week and slowly increase to nightly use. Can also mix with a bland moisturizer to help with irritation. Discharge Instructions Additional Instructions: You were seen in emergency department for your tick bite. As we discussed you are receiving empiric treatment with doxycycline. Please be cautious being out in the sun as doxycycline will make you more sensitive to the sun. If you develop fevers or any shortness of breath please return to the emergency department. Otherwise please follow-up in the next 7 to 10 days with your primary care provider. Discharge Data Discharge Date/Time-TO BE ENTERED AT DEPARTURE: 07/24/25 10:12 HPI General Date/Time Provider Initiated Documentation: 07/24/25 09:33. HPI Narrative: MDM This is a quite well-appearing normothermic and not tachycardic 40-year-old nondiabetic female with tick bite and recent fever for which she will receive empiric treatment for early disseminated Lyme with 10-day course of doxycycline, 100 mg twice daily. No pain out of proportion to suggest necrotizing soft tissue infection. No superimposed cellulitis to suggest benefit from bacteriocidal second-generation cephalosporin such as cefuroxime. No fluctuance to suggest abscess. No shortness of breath to suggest Lyme carditis so I did not feel that the patient required a twelve-lead ECG. Given patient's overall well appearance and lack of immunocompromised status my suspicion for babesiosis was low and so I did not feel that the patient required assessment for hemolytic anemia,thrombocytopenia nor DIC. Furthermore I did not feel that the patient required empiric coverage for babesiosis using at atovaquone and azithromycin. She had no petechiae rash nor abdominal pain to suggest [place] tick fever. No nausea nor vomiting nor conjunctival injection to suggest ehrlichiosis. Nonetheless patient will be covered empirically with doxycycline. I also considered rickettsial disease such as [place] spotted fever. Patient does not have any maculopapular rashes. She has no conjunctivitis nor any significant myalgias beyond in the right upper extremity. Nonetheless she will be covered for [place] spotted fever on doxycycline. Patient and I discussed whether or not to test her for Lyme disease and other tickborne illnesses. Given her early symptoms my suspicion was high and that her test would yield a false negative results. We agreed that the benefits of empiric treatment outweighed the risks. I have asked healthy and coordinator Lynnette to have the patient seen by her primary care provider in the next 10 days or so for reassessment. Patient is amenable to returning to the emergency department if she developed worsening symptoms such as fevers fatigue or any shortness of breath. We also discussed sun protection during doxycycline use. She understood her return indications and was discharged with an empiric trial of expectant outpatient management. HPI The patient is a [id number] 40-year-old female presenting to the ED via private vehicle for evaluation of a tick bite on her right upper extremity. She reports waking up last night in a state of profuse sweating, feeling unwell, and experiencing a throbbing sensation in her arm. This occurred in the background of several days camping in [place] supporting a cousin running a long distance trail race. Patient was vigilant about checking for ticks but discovered that tick bite on her right upper extremity when she noticed pain overnight. Upon examination, she discovered an engorged tick embedded in her skin. She has not received the influenza vaccine recently and has not taken any antipyretics. Although she did not measure her temperature, she suspects she had a fever due to the excessive sweating. She reports no other similar bites on her body. Her arm is currently tender, but she is able to move it without difficulty. Exam General: Well-appearing in no acute distress speaking in complete sentences. Head: Normocephalic, atraumatic. Eye: Extraocular eye movements intact. No conjunctival injection. No scleral icterus. Ear, nose, mouth, throat: Grossly normal inspection. Normal voice, handling secretions normally. Neck: Trachea midline. Cardiovascular: Well-perfused distal extremities. Respiratory: Nonlabored respiration. Gastrointestinal: Nondistended abdomen. Musculoskeletal: On the posterior aspect of the right upper extremity there is a small approximately 2 x 2 mm area consistent with recently removed tick. There is no fluctuance. There is a mild surrounding tenderness. No erythema. Right upper extremity and right hand with preserved range of motion. No signs of erythema migrans. Neurologic: Alert and appropriate, no apparent acute deficits. Psychiatric: Mood and manner are appropriate. Grooming and personal hygiene are appropriate. Related Data Home Medications ?Medication ?Instructions ?Recorded ?Confirmed mometasone 50 mcg/actuation nasal 2 spray intranasal DAILY 02/07/21 07/24/25 spray (Nasonex) magnesium 200 mg tablet 400 mg PO DAILY 12/18/23 07/24/25 blood-glucose sensor (Dexcom G7 #1 ea 01/05/24 07/24/25 Sensor device) blood-glucose,heavy equipment plumbing supervisor,cont #1 ea 01/05/24 07/24/25 (Dexcom G7 Agriculture Extension Specialist) azelaic acid 15 % topical gel 1 applic topical BID 01/07/24 07/24/25 tretinoin 0.05 % topical cream 1 applic topical QHS 01/07/24 07/24/25 albuterol sulfate 90 mcg/actuation 2 puff inhalation QID PRN 06/18/24 07/24/25 aerosol inhaler shortness of breath or wheezing #1 unit losartan 25 mg tablet 25 mg PO BID #180 tabs 06/18/24 07/24/25 doxycycline hyclate 100 mg capsule 100 mg PO BID 10 days #20 caps 07/24/25 Previous Rx's ?Medication ?Instructions ?Recorded blood-glucose sensor (Dexcom G7 #1 ea 01/05/24 Sensor device) blood-glucose,heavy equipment plumbing supervisor,cont #1 ea 01/05/24 (Dexcom G7 Agriculture Extension Specialist) albuterol sulfate 90 mcg/actuation 2 puff inhalation QID PRN 06/18/24 aerosol inhaler shortness of breath or wheezing #1 unit losartan 25 mg tablet 25 mg PO BID #180 tabs 06/18/24 doxycycline hyclate 100 mg capsule 100 mg PO BID 10 days #20 caps 07/24/25 Allergies Allergy/AdvReac Type Severity Reaction Status Date / Time No Known Allergies Allergy Verified 07/24/25 09:39 environmental Allergy Severe rhinitis Uncoded 07/24/25 09:39 General JESS: 5 PFSH All Active Problems (Updated 07/24/25 @ 10:04 by Alon Leong MD) Tick bite of right upper arm (Acute) Mass of left hand (Acute) Dysphagia (Acute) GERD (gastroesophageal reflux disease) (Chronic) Presence of saline breast implant (Acute) Screening for breast cancer (Acute) Hair loss (Acute) Mild --> now noticeable .. [ ] Minox top vs Finesteride vs Spirono? Nevus sebaceous (Acute) Multiple melanocytic nevi (Acute) Onychomycosis (Acute) Rosacea (Acute) Low serum HDL (Acute) Elevated LDL cholesterol level (Acute) HTN, goal below 130/80 (Acute) Situational hypertension (Acute) Encounter for IUD insertion (Acute) Altitude sickness preventative measures (Acute) Prevention, moderate- to high-risk situations: Note: Use in addition to gradual ascent; start the day before (preferred) or on the day of ascent (Ref). Oral (immediate release): 125 mg twice daily; may be discontinued after staying at the same elevation for 2 to 4 days or if descent is initiated (Ref). Treatment: Acute mountain sickness: Oral (immediate release): 250 mg twice daily (Ref). Continue until descent or 24 hours after resolution of symptoms. Note: Some experts suggest 125 mg twice daily may be sufficient (Ref). General counseling and advice for contraceptive management (Acute) Breast cancer screening by mammogram (Acute) Melanoma in situ (Acute) Acne vulgaris (Acute 07/28/17) Exercise-induced asthma (Acute) Tonsillar calculus (Acute) Environmental allergies (Acute) Loratidine, 3/4 year. Nasonex. Fatigue (Acute) Daily exercise; Hx anemia during . [ ] TSH Ocular migraine (Acute) Migraine headache without aura (Acute) Right hand pain (Acute) Sprain of right scapholunate ligament (Acute) Low grade squamous intraepithelial lesion (LGSIL) on cervical Pap smear (Acute) Nail dystrophy (Acute) Pain, foot (Acute) False-positive serological test result (Chronic) HIV, PCR consistently negative Post covid-19 condition, unspecified (Acute) Medical History Skin lesion of foot Depression Wedge compression fracture of first lumbar vertebra, initial encounter for closed fracture (04/20/18) Encounter for screening for other viral diseases Hx INDETERMINATE HIV, PCR (-). d/w albin vickers numerous times. Surgical History History of esophagogastroduodenoscopy (~08/2024) History of colonoscopy (~08/2024) H/O breast augmentation (~2007) section (12/07/11) Family History Mother Multiple myeloma Depression Hypothyroid Father Diabetes Heart disease Hypertension Stroke Brother Hypertension Hyperlipidemia Social History Smoking/Tobacco Use Status: Never Smoking risk assessment performed?: Yes Alcohol Intake: current Alcohol Intake frequency: a few times a week Alcohol type: hard liquor Drug use: Never Substance use type: does not use Adopted: No Caregiver/Support person: No Foster care: No Household members: significant other and children Housing: house Number of Children: 2 Communication Needs: Corrective Lenses Do you need help understanding health information?: Never 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
[2025-07-24 09:40] VITALS: BP 134/88; PULSE 60; RESP 20; TEMP 36.8; O2SAT 100
== END 2025-07-24 10:12 | disposition home or self-care (01) ==
LOC: ER 10:15
PROVIDERS: Emergency Provider Emergency Medicine; PCP Nurse Practitioner Family
DX: S40.861A Insect bite (nonvenomous) of right upper arm, initial encounter (principal); W57.XXXA Bitten or stung by nonvenomous insect and other nonvenomous arthropods, initial encounter
CPT/HCPCS: 99283 ×2

== ENCOUNTER 2025-08-16 14:16 | Outpatient (REF) | payer OTHER, SELFPAY | END 2025-08-16 14:17 | disposition home or self-care (01) | LOC: LBN 14:16 | PROVIDERS: PCP Nurse Practitioner Family; Visit Provider Obstetrics & Gynecology | DX: Z12.4 Encounter for screening for malignant neoplasm of cervix (principal) | CPT/HCPCS: 88142; 87624 ==